=== PATIENT | male | born 1960 | race Caucasian/White ===

== ENCOUNTER 2024-02-21 12:40 | Outpatient (CLI) | payer OTHER ==
--- NOTE | 2024-02-21 20:56 | MRI Report ---
Shoulder RT WO CLINICAL HISTORY: 63 years of age, Male, CHRONIC RT SHOULDER PAIN, DECREASED ROM. Comparison: No priors available Technique: Multiplanar, multisequence MRI of the right shoulder was performed without intravenous co ntrast. IV Contrast: Not Administered. Findings: Osseous acromial outlet: Moderate degenerative changes of the acromioclavicular joint. Type I acromio n on sagittal imaging. No os acromiale. Mild subacromial/subdeltoid bursal fluid. Rotator cuff muscles and tendons: In the supraspinatus, there is full-thickness near full-thickness w ith tear at the critical zone, with relatively sparing of the posterior fiber. There is associated sc arring in, without tendon retraction. Moderate tendinosis of the supraspinatus. Moderate tendinosis o f the infraspinatus, with low-grade interstitial tear, and small amount of the examination of fluid t racking along the infraspinatus tendon. The teres minor is unremarkable. High-grade tear of the super ior fibers of the subscapularis. Muscles are intact without evidence of atrophy or edema. Labral and capsular structures: Diffuse degeneration and tear. No paralabral cysts. Biceps tendon and anchor: Moderate tenosynovitis of the extra-articular biceps tendon. Moderate tendi nosis of the intra-articular biceps tendon. Osseous and cartilaginous structures: Severe degenerative changes of the glenohumeral joint with comp lete chondral denudation of the humeral head and the glenoid, and extensive subchondral cystic change s and associated marrow edema. There is large osteophytosis of the right humeral head. Miscellaneous: Small glenohumeral effusion with synovitis. Multiple small intra-articular body within the axillary recess. Moderate subcoracoid bursitis with multiple intra-articular body, with the larg est measuring 9 mm. The remaining muscles are normal in bulk without evidence of atrophy or edema. IMPRESSION: 1.Moderate degenerative changes of the acromioclavicular joint. 2.Severe degenerative changes of the glenohumeral joint. Small glenohumeral effusion with synovitis. Multiple intra-articular bodies. 3.Full-thickness, near full width tear of the supraspinatus. Low-grade tear of the infraspinatus. Hig h-grade tear of the superior fibers of the subscapularis. 4.Moderate tenosynovitis of the intra-articular biceps tendon. Reviewed by: Janette Dejesus MD on 02/21/2024 8:54 PM PDT Approved by: Janette Dejesus MD on 02/21/2024 8:54 PM PDT Station ID: [id number]
== END 2024-02-21 12:41 | disposition home or self-care (01) ==
LOC: DI 12:40
PROVIDERS: ATTEND Nurse Practitioner Family
DX: M19.011 Primary osteoarthritis, right shoulder (principal); M25.411 Effusion, right shoulder; M75.121 Complete rotator cuff tear or rupture of right shoulder, not specified as traumatic; M65.9 Synovitis and tenosynovitis, unspecified